=== PATIENT | female | born 1960 | race Caucasian/White ===

== ENCOUNTER → 2017-07-26 14:58 | Outpatient (CLI) | payer OTHER ==
[2015-06-01 10:47] VITALS: BMI 31.8
[~2017-07-26 14:58] MED LIST: ELIQUIS2.5 MG PO; PERCOCET 10/3251 TA1 PO; PRAVACHOL40 MG PO; RELAFEN750 MG PO; VENTOLIN HFA18 GM INH; ZOFRAN4 MG PO
== END | disposition home or self-care (01) ==
LOC: D.MAMMO 14:45
DX: Z12.31 Encounter for screening mammogram for malignant neoplasm of breast (principal)

== ENCOUNTER 2017-10-10 15:43 | Emergency (ER) | payer SELFPAY ==
[2015-06-01 10:47] VITALS: BMI 31.8
== END 2017-10-10 21:53 | disposition home or self-care (01) ==
LOC: D.ER 15:43
DX: J11.1 Influenza due to unidentified influenza virus with other respiratory manifestations (principal)

== ENCOUNTER 2018-03-22 18:47 | Inpatient (IN) | payer BC ==
[~2018-03-22] VITALS: Ht 162.6 cm; Wt 86.4 kg
--- NOTE | ~2018-03-22 | OP ---
PATIENT NAME: GUERRERO DANIEL MEDICAL RECORD: [id number] :58 LOCATION:D.M2 D.2133 ADMISSION DATE:03/22/18 SURGEON: KRISTAL VILLASENOR MD DATE OF OPERATION: 03/23/2018 PROCEDURE: Left heart cath plus selective 4-vessel arteriography, right femoral artery approach. CATHETERS: A 5-Emirati sheath, 5/4 left and right Carlos, no pigtail catheter. The procedure was well tolerated. The patient returned to the ghosh, sheath removed. Adequate hemostasis obtained. FINDINGS: Left ventriculography in 30-degree CHASE view: Normal wall motion and normal systolic function. CORONARY ANATOMY: LEFT MAIN: Left main free of disease. LAD: Free of disease in the diagonal system. CIRCUMFLEX: Free of disease in the marginal system. RIGHT CORONARY ARTERY: Co-dominant system, free of disease. IMPRESSION: Normal LV systolic function, normal coronary anatomy. FOUR-VESSEL ARTERIOGRAPHY: The right common carotid was selectively engaged. This shows mild wall disease, but no stenosis greater than 10%. Right internal carotid, normal. Right external carotid, mild wall disease, no stenosis greater than 20%. The left common carotid was then selectively engaged. This showed smooth-walled vessel, free of disease. Left internal carotid is smooth-walled vessel, free of disease. Left external carotid, smooth-walled vessel, free of disease. TRANSINT:[id number] Voice Confirmation ID: [id number] DOCUMENT ID: [id number] KRISTAL VILLASENOR MD at 1505 CC: [id number] DICTATION DATE: 03/23/18 1439 ACCOUNT GENERAL MANAGER: 03/23/18 1501 DIS IN 03/23/18 [facility] [address] [place] [address]
--- NOTE | ~2018-03-22 | HP ---
PATIENT: GUERRERO DANIEL MEDICAL RECORD: [id number] ACCOUNT: [id number] LOCATION:[address] : 58 ADMISSION DATE: 03/22/18 HISTORY AND PHYSICAL EXAMINATION HISTORY OF PRESENT ILLNESS: A 58-year-old female with strong family history of coronary artery disease, dyslipidemia in the past, currently now on treatment, presented with a two separate etiology of numbness and tingling in the left arm and leg as well as chest tightness and pressure that has been ongoing for the past week intermittently. Actually, got relief on Monday with the aspirin. Symptomology returned, also some periorbital numbness as well and by her report in retrospect, we are seeing her concerning her cardiovascular status. PAST MEDICAL HISTORY: Includes history of dyslipidemia, currently not on therapy. MEDICATIONS: None currently. ALLERGIES: HYDROCODONE, PENICILLIN. SOCIAL HISTORY: Smokes about a pack a day, nondrinker. She is able to take care of her ADLs, more social stressors as of late secondary to taking care of her mom with Alzheimer's. REVIEW OF SYSTEMS: The patient reports easy bruising but reports no swollen glands. The patient reports no fever, no night sweats, no significant weight gain, no significant weight loss. No significant exercise tolerance. The patient reports no dry eyes, no irritation, no vision change. Patient reports no difficulty hearing and no ear pain. Patient reports no frequent nose bleeds or nose and sinus problems. Patient reports on arm pain on exertion. No shortness of breath while lying down. No history of heart murmur. Patient reports no cough, no wheezing or coughing up blood. Patient reports no abdominal pain, no vomiting. Normal appetite. No diarrhea and not vomiting blood. No nausea and no constipation. Patient reports no incontinence. No difficulty urinating. No hematuria. No increased frequency. Patient reports no muscle aches. No weakness, no arthralgias, no back pain. No swelling of the extremities. Patient reports no abnormal mole, no jaundice, no rashes. Reports no loss of consciousness. No weakness and no numbness. No seizures, dizziness, or headaches. The patient reports no depression, no sleep disturbance, feeling safe in a relationship and no alcohol abuse. Patient reports on fatigue. Reports no runny nose or sinus pressure. No itching, no hives, and no frequent sneezing. PHYSICAL EXAMINATION: GENERAL: Pleasant female in no acute distress. VITAL SIGNS: Blood pressure 160/97, pulse 110. HEENT: Normocephalic, atraumatic. NECK: Right carotid bruit. HEART: Regular rate, S4 gallop is noted. LUNGS: Few expiratory wheezes. Good air movement. ABDOMEN: Soft, nontender. EXTREMITIES: Pulse preserved, 2+, with no edema. DIAGNOSTIC DATA: ECG shows nonspecific ST-T changes. HISTORY AND PHYSICAL [id number] GUERRERO DANIEL IMPRESSION: Acute coronary syndrome, transient ischemic attack type symptomatology given bruit. PLAN: For catheterization 4-vessel. Further recommendations based on the above. TRANSINT:[id number] Voice Confirmation ID: [id number] DOCUMENT ID: [id number] KRISTAL VILLASENOR MD at 1505 CC: [id number] DICTATION DATE: 03/23/18 0838 WEAPONS MECHANIC: 03/23/18 1131 DIS IN 03/23/18 [facility] [address] [place] [address]
--- NOTE | ~2018-03-22 | HP ---
PATIENT: GUERRERO DANIEL MEDICAL RECORD: [id number] ACCOUNT: [id number] LOCATION:[address] : 58 ADMISSION DATE: 03/22/18 HISTORY AND PHYSICAL EXAMINATION HISTORY OF PRESENT ILLNESS: A 58-year-old female presented to the Emergency Room with substernal chest pain, tightness, pressure with diaphoresis and nausea, has had symptoms over the past 3-4 weeks, worse last night. No prior history of heart disease, rare to seek medical care. Occasional smoker. Former heavy smoker, strong family history of cardiovascular disease. ALLERGIES: HYDROCODONE AND PENICILLIN. PAST MEDICAL HISTORY: Reflux, has had hysterectomy, history of hyperlipidemia. REVIEW OF SYSTEMS: Denies illicit drug use. Denies alcohol. REVIEW OF SYSTEMS: GENERAL: No acute change in weight or appetite. HEENT: No cephalalgia, visual changes, tinnitus, epistaxis or dysphagia. CARDIOVASCULAR: Significant as above. PULMONARY: Denies hemoptysis, denies night sweats. GASTROINTESTINAL: Denies hematemesis, hematochezia or melena. GENITOURINARY: Denies dysuria. MUSCULOSKELETAL: No acute changes. ENDOCRINE: Denies polyuria, polydipsia, or polyphagia. PHYSICAL EXAMINATION: VITAL SIGNS: Temp 98.2, blood pressure 103/63, heart rate 91, respirations 18, O2 sats 95% on room air. GENERAL: Alert and oriented, in no present distress. HEENT: Normocephalic, atraumatic. Eyes: Pupils equally round, reactive to light and accommodation. Extraocular muscles intact. Conjunctivae not injected. Ears: Canals patent, TMs are intact. Nose: Nares patent without drainage. Throat: No erythema, no exudates. NECK: Supple. No lymphadenopathy, no JVD. HEART: Regular rate and rhythm. No S3, S4, no rub. LUNGS: Clear to auscultation bilaterally. Breathing is nonlabored. ABDOMEN: Soft, nontender. Bowel sounds all 4 quadrants. EXTREMITIES: Present times 4. Trace lower extremity edema. NEUROLOGIC: Intact. SKIN: Warm and dry. No rash. LABORATORY DATA: CBC: White count 8.1, hemoglobin 14.5, hematocrit 44.3, platelets 276. Chemistry shows sodium of 141, potassium 3.6, chloride 107, bicarbonate 28.7, BUN 19, creatinine 0.9, calcium 8.3. T-bili 0.55, AST 17, ALT 29, alkaline phosphatase 75. CK 70, CK-MB 0.5, troponin less than 0.017. Chest x-ray stable pulmonary nodule in the left mid lung. No acute findings. EKG shows sinus tachycardia with a rate of 106, nonspecific ST changes. HISTORY AND PHYSICAL [id number] GUERRERO DANIEL ASSESSMENT AND PLAN: 1. Acute angina without family history and multiple risk factors. The patient is admitted. Cardiology consulted. Supportive care. 2. Nicotine dependence. Counseled on smoking cessation. TRANSINT:[id number] Voice Confirmation ID: [id number] DOCUMENT ID: [id number] LEEROY MIX DO at 0809 CC: [id number] DICTATION DATE: 03/23/18 08 CHILDREN'S LIBRARIAN: 03/23/18 1218 DIS IN 03/23/18 [facility] [address] [place] [address]
--- NOTE | ~2018-03-22 | HEMODYNAMI ---
PATIENT:GUERRERO DANIEL MEDICAL RECORD: [id number] : 58 LOCATION:[facility] D.2133 ADMISSION DATE: 03/22/18 Generatedon:03/23/201814:36 Patient name: GUERRERO DANIEL Patient #: [id number] SSN: : 1960 Date of study: 03/23/2018 Page: Of Hemodynamic Procedure Report Patient Data Patient Demographics Procedure consent was obtained First Name: GUERRERO Gender: Female Last Name: MARÍA : 1960 [facility] Initial: HOLLY Age: 58 year(s) Patient #: [id number] Race: Unknown Additional ID: [id number] Contact details [address]: [address] [place] [address] State: [place] City: [place] Zip code: [address] Past Medical History Allergies Allergen Reaction Date Comments Reported Penicillins 03/23/2018 Other allergy 03/23/2018 [place] Admission Admission Data Admission Date: 03/22/2018 Admission Time: 22:05 Room #: D.2133 Procedure Procedure Types Cath Procedure Diagnostic Procedure [facility] w/Coronaries Peripheral Cath Diagnostic Procedure Cath Peripheral Four Vessel Arteriogram Procedure Description Procedure Date Procedure Date: 03/23/2018 Procedure Start Time: 14:22 Procedure End Time: 14:33 Procedure Staff Name Function Mitchel Evans MD Performing Physician Janice Clemente RT Monitor Cristo Ybarra RN Nurse Nathan Snyder RT Scrub Procedure Data Cath Procedure Fluoroscopy Diagnostic fluoroscopy Total fluoroscopy Time: 1.9 time: 1.9 min min Diagnostic fluoroscopy Total fluoroscopy dose: 378 dose: 378 mGy mGy Contrast Material Contrast Material Type Amount (ml) Isovue 300 84 Entry Location Entry Primary Successful Side Size Upsize Upsize Entry Closure Succes sful Closure Location (Fr) 1 (Fr) 2 (Fr) Remarks Device Remarks Femoral Right 5 Fr Exoseal artery Estimated blood loss: 5 ml Diagnostic catheters Device Type Used For End Catheter Placement MULTIPACK JL 4.0 5Fr Left Coronary catheter Angiography MULTIPACK 3DRC 5Fr Right Coronary catheter Angiography MULTIPACK 3DRC 5Fr Cervical carotid catheter (common) arteriography MULTIPACK 3DRC 5Fr Cervical carotid catheter (common) arteriography MULTIPACK Pigtail 5 Fr LV Angiography catheter Procedure Complications No complications Procedure Medications Medication Administration Route Dosage 0.9% NaCl I.V. 100 ml/hr Oxygen etCO2 Nasal cannula 2 l/min Heparin Flush Bag added to field 2 bags (1000units/500ml NS) Lidocaine 2% added to field 20 Benadryl I.V. 50 mg Versed I.V. 1 mg Fentanyl I.V. 50 mcg Versed I.V. 1 mg Fentanyl I.V. 50 mcg Versed I.V. 1 mg Hemodynamics Rest Heart Rate: 50 (bpm) Pressure Samples Time Site Value (mmHg) Purpose Heart Use Rate(bpm) 14:28 LV 125/8,25 EDP 75 Gradients Valve Time Site Site Mean SEP/DFP Peak To Heart Use 1 2 (mmHg) (sec/min) Peak Rate (mmHg) (bpm) Aortic 14:29 LV AO 72 Snapshots Pre Cath Intra NCS Post Cath Vital Signs Time Heart Resp SPO2 etCO2 NIBP (mmHg) Rhythm Pain Sedation Rate (ipm) (%) (mmHg) Status Level (bpm) 14:10:56 65 17 95 0 117/70(93) NSR 0 (11) 10(A) , No pain 14:15:39 67 15 95 0 129/79(92) NSR 0 (11) 10(A) , No pain 14:20:27 66 15 98 42.6 108/70(92) NSR 0 (11) 10(A) , No pain 14:25:08 74 20 97 44.8 124/82(109) NSR 0 (11) 10(A) , No pain 14:29:53 75 14 98 12.6 129/69(100) NSR 0 (11) 9(A) , No pain 14:32:35 67 28 98 39.6 119/74(102) NSR 0 (11) 9(A) , No pain Medications Time Medication Route Dose Verified Delivered Reason Notes Eff ectiveness by by 14:14:05 0.9% NaCl I.V. 100 Cristo Cristo Per ml/hr Tate Ybarra physician RN RN 14:14:15 Oxygen etCO2 2 Cristo Cristo Per Nasal l/min Tate Ybarra physician cannula RN RN 14:14:24 Heparin Flush added 2 Cristo Cristo used for Bag to bags Lorigan Lorigan procedure (1000units/500ml field RN RN NS) 14:14:34 Lidocaine 2% added 20ml Cristo Cristo for local to vial Lorigan Lorigan anesthetic field RN RN 14:14:42 Benadryl I.V. 50 mg Cristo Cristo Per Loramber Mccannigan physician RN RN 14:19:38 Versed I.V. 1 mg Cristo Cristo for Lorigan Lorigan sedation RN RN 14:19:45 Fentanyl I.V. 50 Cristo Cristo for mcg Lorigan Lorigan sedation RN RN 14:21:49 Versed I.V. 1 mg Cristo Cristo for Lorigan Lorigan sedation RN RN 14:21:56 Fentanyl I.V. 50 Cristo Cristo for mcg Lorigan Lorigan sedation RN RN 14:24:22 Versed I.V. 1 mg Cristo Cristo for Lorigan Lorigan sedation RN print binding and finishing worker Log Time Note 13:53:35 Nathan Snyder RT(R) sent for patient. Start room use. 13:53:36 Time tracking: Regular hours (M-F 7:00 - 5:00) 13:53:39 Plan of Care:Hemodynamics will remain stable., Cardiac rhythm will remain stable., Comfort level will be maintained., Respiratory function will remain adequate., Patient/ family verbilizes understanding of procedure., Procedure tolerated without complication., Recovers from procedure without complications.. 14:02:45 Patient received from PCU to CCL 1 Alert and oriented. Tansferred to table in Supine position. 14:02:46 Warm blankets applied, and krystian hugger turned on for patient comfort. 14:02:46 Correct patient and procedure confirmed by team. 14:02:48 Signed procedure consent form obtained from patient. 14:02:48 ECG and BP/O2 sat monitors applied to patient. 14:02:49 Full Disclosure recording started 14:10:01 Vital chart was started 14:10:06 Rhythm: sinus bradycardia 14:10:13 H&P Date Dictated: 03/23/2018 Within 30 days and on chart.. 14:10:14 Pre-procedure instructions explained to patient. 14:10:15 Pre-op teaching completed and patient verbalized understanding. 14:10:16 Family in patients room. 14:10:22 Patient NPO since Midnight. 14:10:30 Patient allergic to Penicillins 14:10:40 Patient allergic to Other allergyNorco 14:10:44 Is the patient allergic to Iodine/contrast media? No. 14:10:47 Is patient on blood thinner?No 14:10:58 Patient diabetic? No. 14:11:01 Previous problem with sedation/anesthesia? No ? 14:11:02 Snore? Yes 14:11:04 Sleep apnea? No 14:11:05 Deviated septum? No 14:11:06 Opens mouth fully? Yes 14:11:07 Sticks out tongue? Yes 14:11:09 Airway obstruction? Yes Asthma 14:11:13 Dentures? Yes IN 14:11:27 Pre procedure: right dorsailis pedis pulse 2+ Normal; easily identifiable; not easily obliterated 14:11:32 Patient pain scale 0/10 ?. 14:14:05 0.9% NaCl 100 ml/hr I.V. was administered by Cristo Ybarra RN; Per physician; 14:14:15 Oxygen 2 l/min etCO2 Nasal cannula was administered by Cristo Ybarra RN; Per physician; 14:14:24 Heparin Flush Bag (1000units/500ml NS) 2 bags added to field was administered by Cristo Ybarra RN; used for procedure; 14:14:31 IV patent on arrival in left forearm with 0.9% NaCl at [facility]. 14:14:34 Lidocaine 2% 20ml vial added to field was administered by Cristo Ybarra RN; for local anesthetic; 14:14:35 Lab results completed and on chart. 14:14:40 Right groin area was prepped with chlora-prep and draped in sterile fashion 14:14:41 Alarms reviewed by R. N. 14:14:41 Sharps counted by scrub and verified by R.N. 14:14:42 Benadryl 50 mg I.V. was administered by Cristo Ybarra RN; Per physician; 14:14:47 Use device set Femoral Dx 14:14:47 ACIST Syringe (66796) opened to sterile field. 14:14:48 Bag Decanter (2002) opened to sterile field. 14:14:48 Medline Cath Pack ([id number]) opened to sterile field. 14:14:49 DIAGNOSTIC WIRE .035 260cm J wire (848001) opened to sterile field. 14:14:50 ACIST Hand Control (27895) opened to sterile field. 14:14:51 ACIST Manifold (92129) opened to sterile field. 14:14:52 DIAGNOSTIC Multipack 5Fr catheter set (IN5709) opened to sterile field. 14:14:52 Tegaderm 4 x 4 (1626W) opened to sterile field. 14:14:53 SHEATH Prelude 5Fr 0.035 (MUN-1G-05-035) opened to sterile field. 14:15:04 Procedure type changed to Cath procedure, Diagnostic procedure, LHC, LHC w/Coronaries, Peripheral Cath Diagnostic Procedure, Cath Peripheral, Four Vessel Arteriogram 14:18:22 Final Timeout: patient, procedure, and site verified with staff and physician. All members of the team are in agreement. 14:18:23 Right groin site verified by team. 14:18:26 Physical assessment completed. ASA score P 2 - A patient with mild systemic disease as per Mitchel Evans MD. 14:18:29 Sedation plan: IV Moderate Sedation Medication:Versed, Fentanyl 14:19:38 Versed 1 mg I.V. was administered by Cristo Ybarra RN; for sedation; 14:19:45 Fentanyl 50 mcg I.V. was administered by Cristo Ybarra RN; for sedation; 14:20:40 Procedure started. 14:20:44 Zero performed for pressure channel P1 14:21:01 Baseline sample Acquired. 14:21:49 Versed 1 mg I.V. was administered by Cristo Ybarra RN; for sedation; 14:21:56 Fentanyl 50 mcg I.V. was administered by Cristo Ybarra RN; for sedation; 14:22:03 Local anesthetic to right femoral artery with Lidocaine 2% by Mitchel Evans MD.INITIAL ACCESS ONLY 14:22:14 A 5 Fr sheath was inserted into the Right Femoral artery 14:22:53 A MULTIPACK JL 4.0 5Fr catheter was advanced over the wire and used for Left Coronary Angiography. 14:23:50 Catheter removed. 14:24:01 A MULTIPACK 3DRC 5Fr catheter was advanced over the wire and used for Right Coronary Angiography. 14:24:22 Versed 1 mg I.V. was administered by Cristo Ybarra RN; for sedation; 14:26:28 A MULTIPACK 3DRC 5Fr catheter was advanced over the wire and used for Cervical carotid (common) arteriography. Right 14:26:42 A MULTIPACK 3DRC 5Fr catheter was advanced over the wire and used for Cervical carotid (common) arteriography. Left 14:26:48 Catheter removed. 14:27:00 A MULTIPACK Pigtail 5 Fr catheter was advanced over the wire and used for LV Angiography. 14:27:06 LV gram done using CHASE 14:27:08 LV hemodynamics recorded. 14:27:11 Injector settings: Ml/sec: 10, Volume: 20, 14:28:58 EF : 50 % 14:29:10 Catheter removed. 14:29:12 EXOSEAL 5Fr (EX500) opened to sterile field. 14:29:22 Sheath removed intact; hemostasis achieved with Exoseal to the Right Femoral artery. 14:29:25 Procedure ended.(Physican Out) 14:29:34 Fluoroscopy time 01.90 minutes. 14:29:39 Fluoroscopy dose: 378 mGy 14:29:39 Flurop Dose total: 378 14:29:45 Contrast amount:Isovue 300 84ml. 14:29:46 Sharps counted by scrub and verified by R.N. 14:29:48 Insertion/operative site no bleeding no hematoma. 14:29:50 Post-op/insertion site Right Femoral artery dressed using a 4 x 4 and Tegaderm. 14:29:53 Post right femoral artery:stable, clean and dry 14:29:54 Post Procedure Pulses reassessed and unchanged 14:29:56 Post-procedure physical assessment completed. ASA score P 2 - A patient with mild systemic disease as per Mitchel Evans MD. 14:29:58 Post procedure rhythm: unchanged. 14:30:01 Estimated blood loss: 5 ml 14:30:02 Post procedure instruction explained to patient.Patient verbalizes understanding. 14:30:17 Patient needs reinforcement of post procedure teaching. 14:30:36 Procedure Complication : No complications 14:30:38 See physician's report for complete and final results. 14:31:03 Report given to PCU. 14:31:09 Procedure and supply charges have been captured, reviewed, submitted and are correct. 14:33:07 Vital chart was stopped 14:33:11 Patient transfered to PCU with Bed. 14:33:27 Procedure ended. 14:33:27 Full Disclosure recording stopped 14:33:30 End room use (Document Last) Device Usage Item Name Manufacture Quantity Catalog Number Hospital Part Current M inimal Lot# / Charge Number Stock Stock Serial# Code ACIST Syringe Acist 1 [id number] 170016 347396 194369 2 0 (01178) [employer] Bag Decanter Microtek 1 2001S 516897 58255 221995 5 (2001S) Medical Inc. Medline Cath Cardinal 1 [id number] 127834 03602 386849 5 Pack Health ([id number]) DIAGNOSTIC WIRE [facility] 1 [id number] 694030 074407 624750 3 0 .035 260cm J wire (226327) ACIST Hand Acist 1 21887 346356 420998 511959 5 Control (04760) [employer] Inc ACIST Manifold Acist 1 47215 915250 842263 315187 5 (81314) [employer] DIAGNOSTIC Cardinal 1 [id number] 728484 16278 936951 3 0 Multipack 5Fr Health catheter set ([id number]) Tegaderm 4 x 4 3M 1 1626W 407236 912232 159345 5 (1626W) SHEATH Prelude Merit 1 TIH-1C-88-035 038070 333607 423182 5 5Fr 0.035 Medical ([id number]-4A-85-035) MULTIPACK JL Cardinal 1 498113 5 4.0 5Fr Health catheter MULTIPACK 3DRC Cardinal 1 [id number] 5 5Fr catheter Health MULTIPACK Cardinal 1 [id number] 5 Pigtail 5 Fr Health catheter EXOSEAL 5Fr Cardinal 1 EX500 847143 892901 963418 1 0 (EX500) Health Signature Audit [place] Stage Time Signature Unsigned Intra-Procedure 03/23/2018 Janice 2:36:53 PM Counts RT(R) Signatures Monitor : Janice Signature : Counts RT Date : Time : [place] [address]
[2018-03-22 19:15] VITALS: BP 145/85
[2018-03-22 19:17] LABS: BASOPHILS 0.3 % (0-2); EOSINOPHILS 1.2 % (0-7); HEMATOCRIT 45.6 % (36.0-48.0); HEMOGLOBIN 15.3 g/dL (12-16); IMMATURE GRANULOCYTES 0.1 % (0-5); LYMPHOCYTES 26.4 % (15-50); MCH 29.3 pg (26.0-34.0); MCHC 33.6 g/dL (31.0-37.0); MCV 87.2 fL (80.0-100.0); MEAN PLATELET VOLUME 10.6 fL (7.4-10.4); MONOCYTES 6.3 % (2-11); NEUTROPHILS 65.7 % (40-80); PLATELET COUNT 288 10x3/uL (130-400); RBC 5.23 10x6/uL (4.00-5.40); RDW 14.1 % (11.5-14.5); WBC 10.6 10x3/uL (4.8-10.8)
[2018-03-22 19:40] LABS: ALBUMIN 3.6 g/dL (3.4-5.0); ALKALINE PHOSPHATASE 89 U/L (46-116); ALT (SGPT) 35 U/L (10-68); BILIRUBIN - TOTAL 0.68 mg/dL (0.2-1.3); CALC OSMOLALITY 285 mosm/kg (275-300); CALCIUM 8.7 mg/dL (8.5-10.1); CARBON DIOXIDE 29.4 mmol/L (21.0-32.0); CHLORIDE - SERUM 104 mmol/L (98-107); GLUCOSE 149 mg/dL (74-106); POTASSIUM - SERUM 3.7 mmol/L (3.5-5.1); PROTEIN - SERUM 7.1 g/dL (6.4-8.2); SODIUM 141 mmol/L (136-145); UREA NITROGEN 17 mg/dL (7-18); eGFR NON AFRICAN AMERICAN 60 mL/min (90-120)
[2018-03-22 19:55] LABS: CKMB 1.1 U/L (0.0-3.6)
[2018-03-22 20:00] VITALS: BP 134/78
[2018-03-22 20:01] LABS: TROPONIN-I < 0.017 ng/mL (0.000-0.060)
[2018-03-22 21:00] VITALS: BP 129/76
[2018-03-22 22:00] VITALS: BP 120/63
[2018-03-22 22:36] LABS: CKMB 0.9 U/L (0.0-3.6); CREATINE KINASE 95 UL (21-215)
[2018-03-22 22:37] LABS: TROPONIN-I < 0.017 ng/mL (0.000-0.060)
[2018-03-23] VITALS (11 sets, daily range): BP systolic 93–115; BP diastolic 50–71; Ht 162.6 cm; Wt 86.4 kg
[2018-03-23 05:37] LABS: BASOPHILS 0.4 % (0-2); EOSINOPHILS 2.3 % (0-7); HEMATOCRIT 44.3 % (36.0-48.0); HEMOGLOBIN 14.5 g/dL (12-16); IMMATURE GRANULOCYTES 0.1 % (0-5); LYMPHOCYTES 29.1 % (15-50); MCH 28.9 pg (26.0-34.0); MCHC 32.7 g/dL (31.0-37.0); MCV 88.2 fL (80.0-100.0); MEAN PLATELET VOLUME 10.5 fL (7.4-10.4); MONOCYTES 9.9 % (2-11); NEUTROPHILS 58.2 % (40-80); PLATELET COUNT 276 10x3/uL (130-400); RBC 5.02 10x6/uL (4.00-5.40); RDW 14.3 % (11.5-14.5); WBC 8.1 10x3/uL (4.8-10.8)
[2018-03-23 06:11] LABS: ALBUMIN 3.2 g/dL (3.4-5.0); ALKALINE PHOSPHATASE 75 U/L (46-116); ALT (SGPT) 29 U/L (10-68); BILIRUBIN - TOTAL 0.55 mg/dL (0.2-1.3); CALC OSMOLALITY 282 mosm/kg (275-300); CALCIUM 8.3 mg/dL (8.5-10.1); CARBON DIOXIDE 28.7 mmol/L (21.0-32.0); CHLORIDE - SERUM 107 mmol/L (98-107); CKMB 0.5 U/L (0.0-3.6); CREATINE KINASE 70 UL (21-215); CREATININE - SERUM 0.9 mg/dL (0.6-1.3); POTASSIUM - SERUM 3.6 mmol/L (3.5-5.1); PROTEIN - SERUM 6.4 g/dL (6.4-8.2); SODIUM 141 mmol/L (136-145); TROPONIN-I < 0.017 ng/mL (0.000-0.060); UREA NITROGEN 19 mg/dL (7-18); eGFR NON AFRICAN AMERICAN 68 mL/min (90-120)
[2018-03-23 06:13] LABS: GLUCOSE 91 mg/dL (74-106)
[2018-03-23 10:51] LABS: CKMB 0.9 U/L (0.0-3.6); CREATINE KINASE 78 UL (21-215)
[2018-03-23 10:56] LABS: TROPONIN-I < 0.017 ng/mL (0.000-0.060)
== END 2018-03-23 18:12 | disposition home or self-care (01) | DRG 287 ==
LOC: D.ER 18:47 → D.EDHOLD 22:05 → D.M2 22:05
PROVIDERS: Emergency Medicine; Family Medicine; Internal Medicine Interventional Cardiology
PROC: 4A023N7 Measurement of Cardiac Sampling and Pressure, Left Heart, Percutaneous Approach (ICD-10-PCS; 2018-03-23)
PROC: B3151ZZ Fluoroscopy of Bilateral Common Carotid Arteries using Low Osmolar Contrast (ICD-10-PCS; 2018-03-23)
PROC: B3181ZZ Fluoroscopy of Bilateral Internal Carotid Arteries using Low Osmolar Contrast (ICD-10-PCS; 2018-03-23)
PROC: B31C1ZZ Fluoroscopy of Bilateral External Carotid Arteries using Low Osmolar Contrast (ICD-10-PCS; 2018-03-23)
PROC: B2111ZZ Fluoroscopy of Multiple Coronary Arteries using Low Osmolar Contrast (ICD-10-PCS; principal; 2018-03-23 13:30)
PROC: B2141ZZ Fluoroscopy of Right Heart using Low Osmolar Contrast (ICD-10-PCS; 2018-03-23 13:30)
DX: R07.9 Chest pain, unspecified (principal); F17.210 Nicotine dependence, cigarettes, uncomplicated; E78.5 Hyperlipidemia, unspecified; R42 Dizziness and giddiness; R00.0 Tachycardia, unspecified; R20.0 Anesthesia of skin; Z82.49 Family history of ischemic heart disease and other diseases of the circulatory system

== ENCOUNTER → 2018-05-28 16:11 | Outpatient (CLI) | payer BC | END | disposition home or self-care (01) | LOC: D.MRI 16:11 | DX: M54.12 Radiculopathy, cervical region (principal) ==

== ENCOUNTER 2020-04-02 17:56 | Observation (INO) | payer OTHER ==
[~2020-04-02] VITALS: Ht 162.6 cm; Wt 83.9 kg
--- NOTE | ~2020-04-02 | HEMODYNAMI ---
PATIENT:TATIANA DANIEL MEDICAL RECORD: [id number] : 58 [id number] ADMISSION DATE: 04/02/20 Generatedon:04/03/202014:17 Patient name: TATIANA DANIEL Patient #: [id number] SSN: [id number] : 1960 Date of study: 04/03/2020 Page: Of Hemodynamic Procedure Report Patient Data Patient Demographics Procedure consent was obtained First Name: TATIANA Gender: Female Last Name: MARÍA : 1960 [facility] Initial: HOLLY Age: 60 year(s) Patient #: [id number] Race: SSN: [id number] Additional ID: [id number] Contact details [address]: [address] [place] [address] State: [place] City: [place] Zip code: [address] Past Medical History Allergies Allergen Reaction Date Comments Reported Penicillins 03/23/2018 Other allergy 03/23/2018 [place] Other allergy 04/03/2020 hydrocodone/pcn Admission Admission Data Admission Date: 04/02/2020 Admission Time: 21:06 Arrival Date: 04/03/2020 Arrival Time: 0:00 Room #: [facility]9 Height (in.): 64.17 BSA: 1.9 (m2) Height (cm.): 163 BMI: 31.62 (kg/m2) Weight (lbs.): 185.19 Weight (kg.): 84 Lab Results Lab Result Date: 04/03/2020 Lab Result Time: 0:00 Biochemistry Name Units Result Min Max BUN mg/dl 18 --(---*)-- 7 18 Creatinine mg/dl 1 --(--*-)-- 0.6 1.3 eGFR ml/min 60 *-(----)-- 90 120 NONAFRICAN CBC Name Units Result Min Max Hematocrit % 41.6 -*(----)-- 42 54 Hemoglobin g/dl 13.3 -*(----)-- 13.5 17.5 Procedure Procedure Types Cath Procedure Diagnostic Procedure [facility] w/Coronaries Sedation Charges Moderate Sedation up to 15 minutes Procedure Description Procedure Date Procedure Date: 04/03/2020 Procedure Start Time: 14:01 Procedure End Time: 14:16 Procedure Staff Name Function Mitchel Evans MD Performing Physician Tatiana Lal RT Monitor Cynthia Plascencia RN Nurse Mona Lee RT Scrub Indication Chest pain Procedure Data Cath Procedure Fluoroscopy Diagnostic fluoroscopy Total fluoroscopy Time: 1.1 time: 1.1 min min Diagnostic fluoroscopy Total fluoroscopy dose: 358 dose: 358 mGy mGy Contrast Material Contrast Material Type Amount (ml) Isovue 300 47 Entry Location Entry Primary Successful Side Size Upsize Upsize Entry Closure Succes sful Closure Location (Fr) 1 (Fr) 2 (Fr) Remarks Device Remarks Femoral Right 5 Fr Exoseal artery Estimated blood loss: 5 ml Diagnostic catheters Device Type Used For End Catheter Placement MULTIPACK JL 4.0 5Fr Left Coronary catheter Angiography MULTIPACK 3DRC 5Fr Right Coronary catheter Angiography MULTIPACK Pigtail 5 Fr LV Angiography catheter Procedure Complications No complications Procedure Medications Medication Administration Route Dosage 0.9% NaCl I.V. 100 ml/hr Oxygen etCO2 Nasal cannula 2 l/min Lidocaine 2% added to field 20 Heparin Flush Bag added to field 2 bags (1000units/500ml NS) Versed I.V. 2 mg Fentanyl I.V. 50 mcg Versed I.V. 2 mg Fentanyl I.V. 50 mcg Hemodynamics Rest BSA: 1.9 (m2) HGB: 13.3 (g/dl) O2 Consumption: Estimated: 178.1 (ml/min) O2 Cons umption indexed: Estimated:93.74 (ml/min/m) Heart Rate: 68 (bpm) Pressure Samples Time Site Value (mmHg) Purpose Heart Use Rate(bpm) 14:11 LV 108/24,28 Snapshot 76 Gradients Valve Time Site Site Mean SEP/DFP Peak To Heart Use 1 2 (mmHg) (sec/min) Peak Rate (mmHg) (bpm) Aortic 14:11 LV AO 75 Snapshots Pre Cath Intra NCS Post Cath Vital Signs Time Heart Resp SPO2 etCO2 NIBP (mmHg) Rhythm Pain Sedation Rate (ipm) (%) (mmHg) Status Level (bpm) 13:52:47 67 16 100 42.4 132/77(100) NSR 0 (11) 10(A) , No pain 13:56:53 68 15 97 43.2 128/79(100) NSR 0 (11) 10(A) , No pain 14:01:01 71 15 97 42.5 128/73(97) NSR 0 (11) 10(A) , No pain 14:05:11 65 12 97 45.5 127/66(93) NSR 0 (11) 10(A) , No pain 14:09:14 74 20 97 46.9 126/85(112) NSR 0 (11) 10(A) , No pain 14:13:20 74 13 97 35.7 138/78(102) NSR 0 (11) 10(A) , No pain Medications Time Medication Route Dose Verified Delivered Reason Notes Eff ectiveness by by 13:51:46 0.9% NaCl I.V. 100 Mitchel Cynthia used for ml/hr [place] [facility] procedure MD PEDROZA 13:51:52 Oxygen etCO2 2 Mitchel Cynthia used for Nasal l/min [facility] procedure cannula MD PEDROZA 13:51:57 Lidocaine 2% added 20ml Mitchel Mitchel for local to vial [facility] anesthetic field MD YEN 13:52:02 Heparin Flush added 2 Mitchel Mitchel used for Bag to bags [facility] procedure (1000units/500ml field MD YEN NS) 14:01:29 Versed I.V. 2 mg Mitchel Cynthia for Cristina Temo sedation MD PEDROZA 14:01:57 Fentanyl I.V. 50 Mitchel Cynthia for mcg Cristina Temo sedation RN 14:06:43 Versed I.V. 2 mg Mitchel Cynthia for Cristina Temo sedation MD PEDROZA 14:06:46 Fentanyl I.V. 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 Start room use. 13:42:15 Indication : Chest pain 13:42:24 Time tracking: Regular hours (M-F 7:00 - 5:00) 13:42:29 Procedure Status Urgent Heart Cath (IP). 13:42:39 Plan of Care:Hemodynamics will remain stable., Cardiac rhythm will remain stable., Comfort level will be maintained., Respiratory function will remain adequate., Patient/ family verbilizes understanding of procedure., Procedure tolerated without complication., Recovers from procedure without complications.. 13:43:06 Patient allergic to Other allergyhydrocodone/pcn 13:43:46 Lab Result : eGFR NONAFRICAN 60 ml/min 13:43:46 Lab Result : Creatinine 1 mg/dl 13:43:46 Lab Result : BUN 18 mg/dl 13:43:46 Lab Result : Hematocrit 41.6 % 13:43:46 Lab Result : Hemoglobin 13.3 g/dl 13:44:04 Patient Height : 64.17 inches 13:44:50 Patient Weight : 185.19 lbs 13:45:15 Patient received from Med II to CCL 1 Alert and oriented. Tansferred to table in Supine position. 13:45:19 Signed procedure consent form obtained from patient. 13:45:20 Warm blankets applied, and krystian hugger turned on for patient comfort. 13:45:21 Correct patient and procedure confirmed by team. 13:45:23 ECG and BP/O2 sat monitors applied to patient. 13:45:31 H&P Date Dictated: 04/03/2020 Within 30 days and on chart.. 13:45:33 Pre-procedure instructions explained to patient. 13:45:34 Pre-op teaching completed and patient verbalized understanding. 13:45:38 Family in patients room. 13:45:40 Patient NPO since Midnight. 13:45:47 Is the patient allergic to Iodine/contrast media? No. 13:45:50 Is patient on blood thinner?No 13:46:53 Patient diabetic? No. 13:46:59 ----Pre-sedation anethsthesia assessment.---- 13:47:02 Previous problem with sedation/anesthesia? No ? 13:47:07 Snore? Yes 13:47:10 Sleep apnea? Yes 13:47:12 Deviated septum? Unknown 13:47:15 Opens mouth fully? Yes 13:47:18 Sticks out tongue? Yes 13:47:27 Airway obstruction? Yes COPD 13:47:31 Dentures? No ? 13:47:36 Pre procedure: right dorsailis pedis pulse 2+ Normal; easily identifiable; not easily obliterated 13:47:50 IV patent on arrival in left hand with 0.9% NaCl at KVO. 13:47:55 Lab results completed and on chart. 13:48:00 Stress Test: no; N/A ? 13:48:09 Right Radial & Right Groin area was prepped with chlora-prep and draped in sterile fashion 13:48:11 Alarms reviewed by R. N. 13:48:11 Sharps counted by scrub and verified by R.N. 13:48:16 Use device set Radial Dx or PCI 13:48:18 ACIST Syringe (46866) opened to sterile field. 13:48:19 Medline Cath Pack ([id number]) opened to sterile field. 13:48:20 Bag Decanter (2002S) opened to sterile field. 13:48:21 ACIST Hand Control (68704) opened to sterile field. 13:48:21 ACIST Manifold (04574) opened to sterile field. 13:48:23 MBrace Wrist Support ([id number]) opened to sterile field. 13:48:25 EMERALD Guide Wire (352-867) opened to sterile field. 13:48:25 SHEATH 6FR RAIN (4432950) opened to sterile field. 13:51:03 Risk of Mortality: 0.6 13:51:08 Risk of blood transfusion: 2.2 13:51:13 Risk of ARIADNE: 1.8 13:51:37 Vital chart was started 13:51:46 0.9% NaCl 100 ml/hr I.V. was administered by Cynthia Plascencia RN; used for procedure; Verbal order read back and verified. 13:51:52 Oxygen 2 l/min etCO2 Nasal cannula was administered by Cynthia Plascencia RN; used for procedure; Verbal order read back and verified. 13:51:57 Lidocaine 2% 20ml vial added to field was administered by Mitchel Evans MD; for local anesthetic; Verbal order read back and verified. 13:52:02 Heparin Flush Bag (1000units/500ml NS) 2 bags added to field was administered by Mitchel Evans MD; used for procedure; Verbal order read back and verified. 13:53:16 Baseline sample Acquired. 13:53:20 Rhythm: sinus rhythm 13:53:23 Full Disclosure recording started 13:54:00 Arrival Date: 04/03/2020 12:00:00 AM 13:54:40 Physician arrived 13:54:41 --------ALL STOP TIME OUT------ 13:54:41 Final Timeout: patient, procedure, and site verified with staff and physician. All members of the team are in agreement. 13:54:45 Right Radial & Right Groin site verified by team. 13:54:52 Fire Safety Assessment: A--An alcohol-based skin anteseptic being used preoperatively., C--Open oxygen or nitrous oxide is being used., D--An ESU, laser, or fiber-optic light is being used. 13:54:55 Physical assessment completed. ASA score P 2 - A patient with mild systemic disease as per Mitchel Evans MD. 13:55:02 2) 60-89 Mildly reduced kidney function, and other findings (as for stage 1) point to kidney disease. 13:55:07 Maximum allowable contrast dose (3.7 X eGFR X 0.75)166 ml. 13:55:13 Sedation plan: IV Moderate Sedation Medication:Versed, Fentanyl 13:59:56 Zero performed for pressure channel P1 14:00:29 Procedure started. 14:01:21 Local anesthetic to right radial artery with Lidocaine 2% by Mitchel Evans MD.INITIAL ACCESS ONLY 14:01:29 Versed 2 mg I.V. was administered by Cynthia Plascencia RN; for sedation; Verbal order read back and verified. 14:01:57 Fentanyl 50 mcg I.V. was administered by Cynthia Plascencia RN; for sedation; Verbal order read back and verified. 14:06:16 UNABLE TO MANUVER WIRE UP THRU RADIAL ARTERY. WILL GO IN RT GROIN. 14:06:43 Versed 2 mg I.V. was administered by Cynthia Plascencia RN; for sedation; Verbal order read back and verified. 14:06:46 Fentanyl 50 mcg I.V. was administered by Cynthia Plascencia RN; for sedation; Verbal order read back and verified. 14:06:47 Local anesthetic to right femoral artery with Lidocaine 2% by Mitchel Evans MD.ADDITIONAL ACCESS 14:07:01 SHEATH 5FR Igo (HIL104) opened to sterile field. 14:07:12 Use device set Multipack Set 14:07:17 DIAGNOSTIC Multipack 5Fr catheter set ([id number]) opened to sterile field. 14:07:36 A 5 Fr sheath was inserted into the Right Femoral artery 14:07:44 A MULTIPACK JL 4.0 5Fr catheter was advanced over the wire and used for Left Coronary Angiography. 14:07:57 LCA angiography performed. 14:08:01 Injector settings: Ml/sec: 3, Volume: 6, 14:09:02 Catheter removed. 14:09:14 A MULTIPACK 3DRC 5Fr catheter was advanced over the wire and used for Right Coronary Angiography. 14:09:52 RCA angiography performed. 14:10:01 Injector settings: Ml/sec: 3, Volume: 6, 14:10:05 Catheter removed. 14:10:12 A MULTIPACK Pigtail 5 Fr catheter was advanced over the wire and used for LV Angiography. 14:10:39 EXOSEAL 5Fr (EX500) opened to sterile field. 14:10:44 Tegaderm 4 x 4 (1626W) opened to sterile field. 14:11:47 LV gram done using CHASE 14:11:57 EF : 60 % 14:11:59 LV hemodynamics recorded. 14:12:03 Injector settings: Ml/sec: 5, Volume: 15, 14:12:04 Catheter removed. 14:12:43 Sheath removed intact; hemostasis achieved with Exoseal to the Right Femoral artery. 14:12:46 Procedure ended.(Physican Out) 14:12:59 Contrast amount:Isovue 300 47ml. 14:13:09 Fluoroscopy time 01.10 minutes. 14:13:15 Fluoroscopy dose: 358 mGy 14:13:15 Flurop Dose total: 358 14:13:22 Dose Area Product 94553 mGy/cm. 14:13:26 Maximum allowable dose exceeded? No. 14:13:28 Sharps counted by scrub and verified by R.N. 14:13:46 Insertion/operative site no bleeding no hematoma. 14:13:51 Post-op/insertion site Right Femoral artery dressed using a 4 x 4 and Tegaderm. 14:14:39 MANUAL PRESSURE HELD ON RT RADIAL STICK SITE. 14:14:46 Post right femoral artery:stable 14:14:51 Post-procedure physical assessment completed. ASA score P 2 - A patient with mild systemic disease as per Mitchel Evans MD. 14:14:55 Post procedure rhythm: unchanged. 14:14:59 Estimated blood loss: 5 ml 14:15:00 Post procedure instruction explained to patient.Patient verbalizes understanding. 14:15:01 Patient needs reinforcement of post procedure teaching. 14:15:26 Procedure type changed to Cath procedure, Diagnostic procedure, LHC, C w/Coronaries, Sedation Charges, Moderate Sedation up to 15 minutes 14:15:28 Procedure and supply charges have been captured, reviewed, submitted and are correct. 14:16:01 Procedure Complication : No complications 14:16:04 Vital chart was stopped 14:16:06 [facility] Findings: mild to moderate CAD (<70%) 14:16:10 Operative report dictated upon procedure completion. 14:16:12 See physician's report for complete and final results. 14:16:15 Report given to Med II. 14:16:19 Patient transfered to Med II with Bed. 14:16:23 Procedure ended. 14:16:23 Full Disclosure recording stopped 14:16:26 End room use (Document Last) Device Usage Item Name Manufacture Quantity Catalog Hospital Part Current Minima l Lot# / Number Charge Number Stock Stock Serial# Code ACIST Acist 1 33549 [id number] [id number] 618234 20 Syringe Medical (97244) Systems Inc Medline Medline 1 [id number] 904375 97457 087868 5 Cath Pack ([id number]) Bag Microtek 1 2001S 800745 22508 750932 5 Decanter Medical Inc. () ACIST Hand Acist 1 37408 926620 580413 441985 5 Control Medical (13654) Systems Inc ACIST Acist 1 30039 531028 974822 616364 5 Manifold Medical (42690) Systems Inc MBrace Advanced 1 140-0250-00 746170 37413 811327 5 Wrist Vascular Support Dynamics ([id number]) EMERALD Cardinal 1 502-455 618241 174260 528356 5 Guide Wire Health (502455) SHEATH 6FR Cardinal 1 [id number] 774910 7165557 234038 5 RAIN Health (8828997) SHEATH 5FR Terumo 1 [id number] 306055 734310 384454 5 Igo (QUO648) DIAGNOSTIC Cardinal 1 SH6729 486651 37587 406975 30 Multipack Health 5Fr catheter set (EP7342) MULTIPACK Cardinal 1 023987 5 JL 4.0 5Fr Health catheter MULTIPACK Cardinal 1 755186 5 3DRC 5Fr Health catheter MULTIPACK Cardinal 1 891925 5 Pigtail 5 Health Fr catheter EXOSEAL 5Fr Cardinal 1 EX500 100242 252403 584322 10 (EX500) Health Tegaderm 4 3M 1 1626W 104255 600149 062131 5 x 4 (1626W) Signature Audit [place] Stage Time Signature Unsigned Intra-Procedure 04/03/2020 Tatiana 2:16:45 PM Hali RT(R) (CV) Intra-Procedure 04/03/2020 Cynthia Plascencia 2:17:15 PM RN Intra-Procedure 04/03/2020 Mitchel Rainey 2:17:[address] [facility] [address] [place] [address]
[2020-04-02] MEDS ORDERED: BUPROPION HCL150 M1 PO (18:20)
[2020-04-02] MEDS ORDERED: ALBUTEROL SULF8.5 GM INH (18:21)
[2020-04-02] MEDS ORDERED: SYMBICORT 16010.2 GM INH (18:21)
[2020-04-02 19:33] LABS: BASOPHILS 0.3 % (0-2); EOSINOPHILS 1.8 % (0-7); HEMATOCRIT 45.3 % (36.0-48.0); HEMOGLOBIN 14.6 g/dL (12-16); IMMATURE GRANULOCYTES 0.3 % (0-5); LYMPHOCYTES 26.3 % (15-50); MCH 28.8 pg (26.0-34.0); MCHC 32.2 g/dL (31.0-37.0); MCV 89.3 fL (80.0-100.0); MEAN PLATELET VOLUME 9.5 fL (7.4-10.4); MONOCYTES 9.2 % (2-11); NEUTROPHILS 62.1 % (40-80); PLATELET COUNT 315 10x3/uL (130-400); RBC 5.07 10x6/uL (4.00-5.40); RDW 14.9 % (11.5-14.5); WBC 9.9 10x3/uL (4.8-10.8)
[2020-04-02 19:34] VITALS: BP 134/53
[2020-04-02 19:40] LABS: APTT 26.7 SECONDS (22.8-39.4); CALC OSMOLALITY 279 mosm/kg (275-300); CALCIUM 9.7 mg/dL (8.5-10.1); CARBON DIOXIDE 28.4 mmol/L (21.0-32.0); CHLORIDE - SERUM 105 mmol/L (98-107); GLUCOSE 74 mg/dL (74-106); INR 0.94 (0.85-1.17); PROTIME 12.6 SECONDS (11.6-15.0); SODIUM 140 mmol/L (136-145); UREA NITROGEN 18 mg/dL (7-18); eGFR NON AFRICAN AMERICAN 60 mL/min (90-120)
[2020-04-02 19:57] LABS: ALBUMIN 3.7 g/dL (3.4-5.0); ALKALINE PHOSPHATASE 83 U/L (30-120); ALT (SGPT) 33 U/L (10-68); BILIRUBIN - TOTAL 0.64 mg/dL (0.2-1.3); CKMB 2.2 U/L (0.0-3.6); CREATINE KINASE 305 UL (21-215); MAGNESIUM - SERUM 2.2 mg/dL (1.8-2.4); TROPONIN-I < 0.017 ng/mL (0.000-0.060)
[2020-04-02 20:07] VITALS: BP 93/66
[2020-04-02 20:27] VITALS: BP 137/60
--- NOTE | 2020-04-02 20:29 | NUR ---
PT GIVEN ONE SL NITRO AT THIS TIME. PT STATES PAIN WENT FROM A 5 TO A 3
--- NOTE | 2020-04-02 23:04 | NUR ---
RECIEVED TO ROOM 2118 FROM ER VIA WC. PT A&O, RESPERATIONS EVEN ON RA. IV TO LEFT AC WITH NS INFUSING, IV SITE CLEAN AND DRY. MED REC AND HISTORY OBTAINED. PLACED ON TELEMETRY, 64 SR PER MT. VITALS STABLE, 97.7, 128/68, 20 RESP. 95% RA. COLA WITH A CUP OF ICE GIVEN, PT DECLINES THE OFFER OF FOOD. DENIES PAIN OR NEEDS, BED LOW, CL IN REACH. INFORMED PT NO THING TO EAT OR DRINK AFTER MN FOR CARDIOLOGY CONSULT, PT STATED UNDERSTANDING.
[2020-04-03 03:25] LABS: BASOPHILS 0.2 % (0-2); HEMATOCRIT 41.6 % (36.0-48.0); HEMOGLOBIN 13.3 g/dL (12-16); IMMATURE GRANULOCYTES 0.2 % (0-5); LYMPHOCYTES 34.4 % (15-50); MCV 90.6 fL (80.0-100.0); MEAN PLATELET VOLUME 9.4 fL (7.4-10.4); MONOCYTES 9.7 % (2-11); NEUTROPHILS 52.5 % (40-80); PLATELET COUNT 293 10x3/uL (130-400); RBC 4.59 10x6/uL (4.00-5.40); RDW 14.8 % (11.5-14.5)
[2020-04-03 03:45] VITALS: BMI 31.8
[2020-04-03 03:46] LABS: CALC OSMOLALITY 284 mosm/kg (275-300); CALCIUM 8.6 mg/dL (8.5-10.1); CARBON DIOXIDE 28.2 mmol/L (21.0-32.0); CHLORIDE - SERUM 109 mmol/L (98-107); CHOL - HDL RATIO 5.5 ratio (2.3-4.1); CHOLESTEROL, TOTAL 227 mg/dL (0-200); CKMB 1.9 U/L (0.0-3.6); CREATINE KINASE 229 UL (21-215); GLUCOSE 93 mg/dL (74-106); HDL CHOLESTEROL 41 mg/dL (32-96); LDL CHOLESTEROL 178 mg/dL (0-100); LDL-HDL RATIO 4.3 ratio (1.5-3.5); PHOSPHOROUS 4.3 mg/dL (2.5-4.9); POTASSIUM - SERUM 4.4 mmol/L (3.5-5.1); SODIUM 142 mmol/L (136-145); TRIGLYCERIDE 44 mg/dL (30-200); TROPONIN-I < 0.017 ng/mL (0.000-0.060); UREA NITROGEN 18 mg/dL (7-18); eGFR NON AFRICAN AMERICAN 60 mL/min (90-120)
[2020-04-03 04:00] VITALS: BP 130/70
[2020-04-03 08:00] VITALS: BP 101/56
[2020-04-03 09:29] LABS: CHOL - HDL RATIO 5.3 ratio (2.3-4.1); LDL-HDL RATIO 4.1 ratio (1.5-3.5)
[2020-04-03 09:45] LABS: CKMB 1.7 U/L (0.0-3.6); CREATINE KINASE 212 UL (21-215); TROPONIN-I < 0.017 ng/mL (0.000-0.060)
[2020-04-03 11:00] VITALS: BP 91/50
[2020-04-03 13:14] LABS: CKMB 1.6 U/L (0.0-3.6); CREATINE KINASE 195 UL (21-215); TROPONIN-I < 0.017 ng/mL (0.000-0.060)
--- NOTE | 2020-04-03 13:50 | NUR ---
PRE-OPS GIVEN. TO WEB CONTENT & SOCIAL MEDIA MANAGER BY BED.
--- NOTE | 2020-04-03 14:32 | NUR ---
BACK FORM CHURCH ADMINISTRATOR. VS WNL. RIGHT GROIN STABLE WITHOUT BLEEDING OR HEMATOMA NOTED. TR BAND INTACT. WILL MONITOR.
[2020-04-03 14:50] VITALS: Ht 162.6 cm; Wt 83.9 kg
[2020-04-03 16:19] VITALS: BP 114/68
--- NOTE | 2020-04-03 16:44 | NUR ---
BED REST UP. GROIN STABLE.
--- NOTE | 2020-04-03 16:54 | NUR ---
IV AND TELEMETRY DCD. DC PLANS GIVEN. UNDERSTANDING VOICED. ESCORTED TO CAR BY W/C.
--- NOTE | 2020-04-06 13:47 | OP ---
PATIENT NAME: GUERRERO DANIEL MEDICAL RECORD: [id number] :58 LOCATION:D.M2 D.2119 ADMISSION DATE:04/02/20 SURGEON: KRISTAL VILLASENOR MD DATE OF OPERATION: 04/03/2020 PROCEDURE: Left heart catheterization, selective coronary angiography, right femoral artery approach. CATHETERS: A 5-Divehi sheath, 5/4 left and right Carlos, 5/4 pig. The procedure was well tolerated. The patient returned to ghosh, sheath removed. ExoSeal device was placed. FINDINGS: Left ventriculography in 30-degree CHASE view: Normal wall motion and normal systolic function. CORONARY ANATOMY: LEFT MAIN: Left main is free of disease. LAD: Free of disease in the diagonal system. CIRCUMFLEX: Free of disease in the marginal system. RIGHT CORONARY ARTERY: Dominant artery, gives rise to PDA, free of disease. IMPRESSION: Normal LV systolic function, normal coronary anatomy. TRANSINT:[id number] Voice Confirmation ID: [id number] DOCUMENT ID: [id number] KRISTAL VILLASENOR MD at 1347 CC: [id number] DICTATION DATE: 04/03/20 1419 HEADWAITRESS: 04/04/20 0018 DIS IN 04/03/20 [id number] [place] [address]
--- NOTE | 2020-04-06 13:47 | CN ---
PATIENT NAME:GUERRERO DANIEL MEDICAL RECORD: [id number] : 58 LOCATION:D.M2 D.2119 ADMIT DATE: 04/02/20 ACCOUNT: [id number] CONSULTING PHYSICIAN: KRISTAL VILLASENOR MD REFERRING PHYSICIAN: MARGO HERNANDEZ MD DATE OF CONSULTATION: 04/03/2020 HISTORY OF PRESENT ILLNESS: A 60-year-old female with no known history of coronary artery disease, has history of hypertension as well as obstructive pulmonary disease, admitted with progressive chest tightness and pressure with exertion, some nausea. Does have a strong family history of coronary artery disease. Symptomology has been over the past week or so. We are asked to see her concerning her cardiovascular status. PAST MEDICAL HISTORY: 1. History of hypertension. 2. Hyperlipidemia, untreated. 3. Obstructive pulmonary disease. ALLERGIES: NORCO, PENICILLIN. MEDICATIONS: Include albuterol 2 puffs q.4, Wellbutrin 150 b.i.d., hydrochlorothiazide 25 daily, Symbicort 2 puffs b.i.d. SOCIAL HISTORY: Smokes about a pack a day, nondrinker, no illicit drug use. No set exercise program. REVIEW OF SYSTEMS: The patient reports easy bruising but reports no swollen glands. The patient reports no fever, no night sweats, no significant weight gain, no significant weight loss. No significant exercise tolerance. The patient reports no dry eyes, no irritation, no vision change. Patient reports no difficulty hearing and no ear pain. Patient reports no frequent nose bleeds or nose and sinus problems. Patient reports on arm pain on exertion. No shortness of breath while lying down. No history of heart murmur. Patient reports no cough, no wheezing or coughing up blood. Patient reports no abdominal pain, no vomiting. Normal appetite. No diarrhea and not vomiting blood. No nausea and no constipation. Patient reports no incontinence. No difficulty urinating. No hematuria. No increased frequency. Patient reports no muscle aches. No weakness, no arthralgias, no back pain. No swelling of the extremities. Patient reports no abnormal mole, no jaundice, no rashes. Reports no loss of consciousness. No weakness and no numbness. No seizures, dizziness, or headaches. The patient reports no depression, no sleep disturbance, feeling safe in a relationship and no alcohol abuse. Patient reports on fatigue. Reports no runny nose or sinus pressure. No itching, no hives, and no frequent sneezing. PHYSICAL EXAMINATION: GENERAL: Pleasant female in no acute distress, appears stated age. VITAL SIGNS: 101/56, pulse 65 and regular. HEENT: Normocephalic, atraumatic. NECK: No bruits noted. HEART: Regular. II/ systolic ejection murmur. LUNGS: Slight prolonged expiratory phase, few expiratory wheezes. ABDOMEN: Soft, nontender. EXTREMITIES: Pulses well preserved, 2+, with no edema. CONSULT REPORT [id number] GUERRERO DANIEL DIAGNOSTIC DATA: EKG shows nonspecific ST-T changes inferolaterally. IMPRESSION: Acute coronary syndrome, class 3-4 angina. PLAN: For angiography, intervention based on above. TRANSINT:[id number] Voice Confirmation ID: [id number] DOCUMENT ID: [id number] KRISTAL VILLASENOR MD at 1347 CC: [id number] DICTATION DATE: 04/03/20 123 OPERATIONS LABEL CLERK: 04/03/202150 DIS IN 04/03/[address] [facility] [address] [place] [address]
== END 2020-04-03 16:55 | disposition home or self-care (01) ==
LOC: D.ER 17:56 → D.M2 21:06 → OBSVTIME 21:06 → D.M2 21:06
PROVIDERS: Family Medicine; Internal Medicine Interventional Cardiology; ADMIT Family Medicine; ATTEND Family Medicine
DX: I20.0 Unstable angina (principal); J44.9 Chronic obstructive pulmonary disease, unspecified; K21.9 Gastro-esophageal reflux disease without esophagitis; M19.90 Unspecified osteoarthritis, unspecified site; F32.9 Major depressive disorder, single episode, unspecified; Z72.0 Tobacco use

== ENCOUNTER 2020-04-23 17:44 | Outpatient (CLI) | payer OTHER ==
[2020-04-03 14:50] VITALS: BMI 31.7
[~2020-04-23 17:44] MED LIST changes: +ALBUTEROL SULF8.5 GM INH; +BUPROPION HCL150 M1 PO; +SYMBICORT 16010.2 GM INH
== END 2020-04-24 23:59 | disposition home or self-care (01) ==
LOC: D.MAMMO 17:44
PROVIDERS: ATTEND Family Medicine
DX: Z12.31 Encounter for screening mammogram for malignant neoplasm of breast (principal)